=== PATIENT | female | born 1985 ===

== ENCOUNTER 2024-03-02 22:11 | Emergency (ER) | payer OTHER, SELFPAY ==
[2024-03-02 22:16] VITALS: BP 122/61; PULSE 67; RESP 16; TEMP 36.4; O2SAT 100; BMI 23.6
[2024-03-02 22:56] VITALS: PULSE 65; O2SAT 100
[2024-03-02 23:00] VITALS: PULSE 72; O2SAT 100
[2024-03-02 23:02] VITALS: PULSE 73; O2SAT 100
[2024-03-02 23:05] VITALS: BP 129/89; PULSE 67; O2SAT 100
== END 2024-03-02 23:59 | disposition left against medical advice (07) ==
PROVIDERS: Emergency Provider Family Medicine
DX: Z53.21 Procedure and treatment not carried out due to patient leaving prior to being seen by health care provider (principal)